=== PATIENT | female | born 1970 | race Caucasian/White ===

== ENCOUNTER 2021-01-24 18:15 | Emergency (ER) | payer MEDICARE, OTHER ==
[2021-01-25] MEDS ORDERED: BACTRIM DS TAB1 EACH PO (01:59)
== END 2021-01-25 02:12 | disposition home or self-care (01) ==
LOC: FER 18:15
DX: L02.415 Cutaneous abscess of right lower limb (principal); F17.200 Nicotine dependence, unspecified, uncomplicated; Z88.5 Allergy status to narcotic agent
CPT/HCPCS: 93970